=== PATIENT | female | born 2000 | race Caucasian/White ===

== ENCOUNTER 2025-01-26 23:39 | Inpatient (IN) | payer BC ==
[2025-01-27] MEDS ORDERED: Tranexamic Acid 1,000 MG/10 ML VIAL IVP PRN (01:12)
[2025-01-27] MEDS ORDERED: Diphenoxylate HCl/Atropine Tablet PO PRN ×2 (01:12)
[2025-01-27] MEDS ORDERED: Calcium Gluc 4.6 MEQ/10 ML (100 MG/ML) SLOW IVP PRN ×2 (01:12→23:20)
[2025-01-27] MEDS ORDERED: Lidocaine 1% (PF) 30 ML VIAL SC PRN (01:12)
[2025-01-27] MEDS ORDERED: Oxytocin 30 units/NS 500 ML 500 ML IV SCH (01:12)
[2025-01-27] MEDS ORDERED: Ibuprofen 800 MG TAB PO PRN (01:12)
[2025-01-27] MEDS ORDERED: Carboprost 250 MCG/ML AMP IM PRN (01:12)
[2025-01-27] MEDS ORDERED: Ondansetron PF 4 MG/2 ML Vial IVP PRN ×2 (01:12→19:13)
[2025-01-27] MEDS ORDERED: HYDROcodone/Acetaminophen 5/325 mg Tablet PO PRN ×2 (01:12)
[2025-01-27] MEDS ORDERED: hydrALAZINE 20 MG/ML VIAL SLOW IVP PRN ×2 (01:12)
[2025-01-27 01:14] VITALS: BMI 37.5
[2025-01-27 02:58] LABS: Hematocrit 35.8 % (34.9-44.5); Hemoglobin 11.3 g/dL (12.0-15.5); Mean Corpuscular Hemoglobin 24.8 pg (27.0-33.0); Mean Corpuscular Volume 78.5 fL (81.6-98.3); Platelet Count 251 10x3/uL (150-450); Red Blood Cell (RBC) Count 4.56 10x6/uL (3.90-5.03); White Blood Cell (WBC) Count 11.51 10x3/uL (3.5-10.5)
[2025-01-27 03:19] LABS: Protein, Urine Random Quant Less than 10 mg/dL (1-14)
[2025-01-27 03:22] LABS: ALT (SGPT) 18 U/L (Less than 34); AST (SGOT) 23 U/L (11-34); Albumin 2.8 g/dL (3.1-4.5); Alkaline Phosphatase 176 U/L (40-110); Anion Gap 19 mmol/L (10-20); BUN (Urea Nitrogen) 9 mg/dL (7.0-18.7); Bilirubin, Total 0.2 mg/dL (0.3-1.2); Calc. Creatinine Clearance 246 mL/min (70-130); Calcium 8.9 mg/dL (7.8-10.44); Carbon Dioxide 16 mmol/L (22-29); Chloride 109 mmol/L (98-107); Globulin 4.0 g/dL (2.4-3.5); Glucose 73 mg/dL (70-105); Potassium 3.5 mmol/L (3.5-5.1); Sodium 140 mmol/L (136-145)
[2025-01-27 03:43] LABS: Hep B Surf Ag - L&D Non-Reactive S/CO (NonReactive)
[2025-01-27 03:45] LABS: Syphilis Antibody Index 0.04 S/CO (<1.00 Non-Reactive)
[2025-01-27] MEDS: fentaNYL/Ropivacaine Epidural 100 ML ONE (19:08)
[2025-01-27] MEDS ORDERED: diphenhydrAMINE 50 MG/ML VIAL IVP PRN (19:13)
[2025-01-27] MEDS ORDERED: Communication Order-Pharmacy FS SCH (19:15)
[2025-01-27] MEDS: Oxytocin 30 units/NS 500 ML 500 ML IV SCH (20:57)
[2025-01-27] MEDS: Magnesium Sulfate 20 gm/500 ml 20 GM/500 ML BAG ONE (22:47)
[2025-01-28] MEDS: fentaNYL 2 mcg/Ropivacaine 0.2% Epidural 100 ML CADD EPIDURAL SCH (03:28)
[2025-01-28] MEDS: Acetaminophen 325 MG TAB PO PRN (05:11)
[2025-01-28] MEDS: Magnesium Sulfate 20 gm/500 ml 20 GM/500 ML BAG IVPB SCH (07:19)
[2025-01-28] MEDS: Calcium Carbonate 500 MG ChewTAB PO SCH (09:35)
[2025-01-28] MEDS: Acetaminophen 500 MG TAB PO PRN (11:40)
[2025-01-28] MEDS: hydrALAZINE 20 MG/ML VIAL SLOW IVP PRN (11:40)
[2025-01-28] MEDS: Ibuprofen 800 MG TAB PO SCH (18:23)
[2025-01-28] MEDS: Furosemide 40 MG (4 mL) VIAL SLOW IVP SCH (18:23)
[2025-01-29] MEDS: NIFEdipine XL 30 MG ER.TAB PO SCH ×2 (08:11→21:07)
[2025-01-29] MEDS: Ibuprofen 800 MG TAB PO PRN (10:23)
[2025-01-29] MEDS ORDERED: Bisacodyl 10 MG SUPP PR PRN (12:45)
[2025-01-29] MEDS ORDERED: Milk Of Magnesia 30 ML UDCUP PO PRN (12:45)
[2025-01-29] MEDS ORDERED: Lanolin Ointment 7 GM TUBE TOP PRN (12:45)
[2025-01-29] MEDS ORDERED: hydrALAZINE 20 MG/ML VIAL SLOW IVP PRN (12:45)
[2025-01-29] MEDS: Ferrous Sulfate 325 MG TAB PO SCH (12:55)
[2025-01-29] MEDS: Boostrix 0.5 ML (Tdap) VIAL (>/=7 yrs of age) IM ONE (12:55)
[2025-01-29] MEDS: Ibuprofen 800 MG TAB PO SCH (18:09)
[2025-01-29] MEDS ORDERED: NIFEdipine XL 30 MG ER.TAB PO SCH (21:00)
[2025-01-30 16:39] VITALS: BP 132/76; TEMP 98.1
== END 2025-01-30 18:30 | disposition home or self-care (01) | DRG 807 ==
LOC: CSHLD 23:39 → UNDOADMIN 23:39 → CSHLD 01-27 01:12 → CSHPP 01-29 11:43
PROVIDERS: ADMIT Obstetrics & Gynecology; ATTEND Obstetrics & Gynecology
PROC: 10907ZC Drainage of Amniotic Fluid, Therapeutic from Products of Conception, Via Natural or Artificial Opening (ICD-10-PCS; 2025-01-27)
PROC: 10H07YZ Insertion of Other Device into Products of Conception, Via Natural or Artificial Opening (ICD-10-PCS; 2025-01-27)
PROC: 10E0XZZ Delivery of Products of Conception, External Approach (ICD-10-PCS; principal; 2025-01-28)
DX: O14.14 Severe pre-eclampsia complicating childbirth (principal); Z37.0 Single live birth; Z3A.37 37 weeks gestation of pregnancy; O70.1 Second degree perineal laceration during delivery; O69.81X0 Labor and delivery complicated by cord around neck, without compression, not applicable or unspecified
CPT/HCPCS: 36415; 51702; 80053; 82570; 84156; 85027; 86780; 86850; 86900; 86901; 87340; J0360; J1940; J2590; J3475; J7120